=== PATIENT | female | born 1965 ===

== ENCOUNTER 2016-12-01 17:19 | Emergency (ER) | payer SELFPAY ==
--- NOTE | 2016-12-01 19:38 | XRay Report ---
FINAL REPORT PROCEDURE: XR FOOT 2V LT TECHNIQUE: Left foot radiographs, AP, lateral, and oblique views. HISTORY: injury to left foot COMPARISON: No prior studies are available for comparison. FINDINGS: No acute fracture or dislocation is visualized. Moderate size calcaneal spur seen at the plantar fascia insertion site. Small marginal osteophytic spurs project from the 1st cuneiform 1st metatarsal articulation consistent with osteoarthritis. There is a metallic fixation screw traversing the distal tibia from prior fixation procedure. Well corticated calcification projects inferior to the medial malleolus and also a calcification medial to the navicular bone suggesting large accessory ossicles. IMPRESSION: Postsurgical changes distal tibia. Mild osteoarthritis. No evidence of fracture or dislocation.
--- NOTE | 2016-12-01 19:49 | XRay Report ---
FINAL REPORT PROCEDURE: Two-view left ankle series TECHNIQUE: Left ankle radiographs, AP and lateral views. CPT 42199 HISTORY: injury to left ankle COMPARISON: No prior studies are available for comparison. FINDINGS: Postsurgical changes are seen in the ankle. There is a fixation screw traversing the tibia and extending into the fibula. No acute fracture or dislocation is identified. Ankle mortise and talar dome are intact. There is a well corticated calcifications seen inferior to the medial malleolus suggesting accessory ossicle. Moderate-sized calcaneal spur visualized at the plantar fascia insertion site. IMPRESSION: Postsurgical changes tibia and fibula as described. No acute abnormality is seen..
[2016-12-01 23:26] VITALS: BP 132/76
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
[2016-12-02] MEDS ORDERED: ULTRAM PO ONE (00:50)
== END 2016-12-02 00:26 | disposition home or self-care (01) ==
LOC: ED 17:19
DX: M54.12 Radiculopathy, cervical region (principal); M79.1 Myalgia; F17.200 Nicotine dependence, unspecified, uncomplicated
CPT/HCPCS: 99283